=== PATIENT | male | born 1985 | race Caucasian/White ===

== ENCOUNTER 2019-09-18 22:45 | Emergency (ER) | payer MEDICAID ==
[~2019-09-18] VITALS: Ht 177.8 cm; Wt 92.4 kg
[2019-09-18 22:47] VITALS: BP 124/80
--- NOTE | 2019-09-18 22:54 | NUR ---
Pt to room from triage, ambulatory with steady gait.
== END 2019-09-18 23:52 | disposition home or self-care (01) ==
LOC: ED 23:46
DX: L24.9 Irritant contact dermatitis, unspecified cause (principal); F17.210 Nicotine dependence, cigarettes, uncomplicated
CPT/HCPCS: 99283